=== PATIENT | male | born 1985 | race Caucasian/White ===

== ENCOUNTER 2017-01-19 06:12 | Day surgery (SDC) | payer OTHER ==
[~2017-01-19] VITALS: Ht 175.3 cm; Wt 81.6 kg
[~2017-01-19 06:12] MED LIST: METH60CA2 PO
[2017-01-19] MEDS ORDERED: CLINDAMYCIN 600 MG in APPROPRIATE DILUENT 1 EA IV ONE (06:30)
[2017-01-19] MEDS ORDERED: LR 1,000 ML IV SCH ×3 (06:30→09:45)
[2017-01-19] MEDS ORDERED: LIDOCAINE 2% W/ EPINEPHRINE 1.7 ML DENTAL INJ As Ordered ONE ×2 (07:13→07:51)
[2017-01-19] MEDS ORDERED: fentaNYL 250 MCG/5 ML INJECTION (J3010) As Ordered ONE (07:47)
[2017-01-19] MEDS ORDERED: MIDAZOLAM INJ 2 MG/2 ML VIAL (J2250) As Ordered ONE (07:47)
[2017-01-19] MEDS ORDERED: DESFLURANE 240 ML INHALANT As Ordered ONE (07:47)
[2017-01-19] MEDS ORDERED: dexameTHASONE 4 MG/ML 1ML VIAL (J1100) As Ordered ONE (08:01)
[2017-01-19] MEDS ORDERED: ONDANSETRON 4MG/2ML VIAL (J2405) As Ordered ONE ×2 (08:01→11:46)
[2017-01-19] MEDS ORDERED: METOCLOPRAMIDE INJ 10MG/2ML VIAL (J2765) As Ordered ONE (08:01)
[2017-01-19] MEDS ORDERED: PROPOFOL 200 MG/20 ML VIAL As Ordered ONE (08:01)
[2017-01-19] MEDS ORDERED: LIDOCAINE 2% INJ 100 MG/5 ML SDV (FOR ANES.) As Ordered ONE (08:01)
[2017-01-19] MEDS ORDERED: NEOSTIGMINE 1MG/ML 5 ML SYRINGE (J2710) As Ordered ONE (08:01)
[2017-01-19] MEDS ORDERED: GLYCOPYRROLATE INJ 0.2 MG/ML 2 ML VIAL As Ordered ONE (08:01)
[2017-01-19] MEDS ORDERED: ROCURONIUM BROMIDE 50 MG/5 ML VIAL/SYRINGE As Ordered ONE (08:01)
[2017-01-19] MEDS ORDERED: HYDROmorphone HCL 2 MG/ML 1ML VIAL (J1170) As Ordered ONE (08:25)
[2017-01-19] MEDS ORDERED: PERCOCET 5MG/325MG TAB PO PRN (09:45)
[2017-01-19] MEDS ORDERED: ONDANSETRON 4MG/2ML VIAL (J2405) IV PRN (09:45)
[2017-01-19] MEDS ORDERED: MEPERIDINE INJ 25 MG/ML VIAL (J2175) IV PRN (09:45)
[2017-01-19] MEDS ORDERED: NORCO, ANEXSIA 5/325MG TABLET (HYDROcodone/ACETAMINOPHEN) PO PRN (09:45)
[2017-01-19] MEDS ORDERED: fentaNYL 100 MCG/2 ML INJECTION (J3010) IV PRN (09:45)
[2017-01-19] MEDS ORDERED: CLINDAMYCIN 150 MG CAP PO ONE (09:45)
[2017-01-19] MEDS ORDERED: METOCLOPRAMIDE INJ 10MG/2ML VIAL (J2765) IV PRN (09:45)
[2017-01-19 11:30] VITALS: BP 133/83
--- NOTE | 2017-01-19 17:03 | RO ---
DATE OF PROCEDURE: 01/19/2017 PREOPERATIVE DIAGNOSIS: Multiple carious infected and fractured teeth. POSTOPERATIVE DIAGNOSIS: Multiple carious infected and fractured teeth. SURGICAL PROCEDURE: Extraction of all remaining maxillary teeth and right mandibular teeth #29 and 31. SURGEON: David Rock DDS ANESTHESIA: Nasoendotracheal, general. PROCEDURE: After induction of adequate general anesthesia, the patient was prepped and draped in the usual manner for an oral surgical procedure. The mouth and oropharynx were suctioned free of all secretions and a moist gauze throat pack was inserted. At this time, approximately 6 mL of 2% lidocaine solution containing 1:100,000 epinephrine was infiltrated into the mucofacial and mucolabial fold adjacent to the areas of interest. Teeth #8, 9 and 10 were then extracted with a forceps without complication. Remaining teeth were surgical extractions. Incisions were made through the gingival sulcus at each site with extensions along the alveolar crest and release incisions made as needed. Full-thickness mucoperiosteal flaps were developed. Surgairtome as used to remove bone overlying facial root surfaces. Molar teeth were divided and removed in fragments. After removal of all teeth and root fragments, the sites were debrided. Sharp bony margins were contoured with the Surgairtome and bone file. The sites were thoroughly irrigated and evacuated and then the mucosa recoapted with #4-0 chromic gut sutures. This concluded the procedure. All surgical sites and extraction sites were inspected and adequate hemostasis was verified. The mouth and oropharynx were again suctioned free of all secretions and the moist gauge throat pack removed. Ray-Donya sponges were placed between the upper and lower jaw creating pressure over the extraction sites and left to travel with the patient to the recovery room. The patient was extubated; was in stable condition and transferred to recovery room in satisfactory condition.
== END 2017-01-19 12:10 | disposition home or self-care (01) ==
LOC: M SDC 06:12
PROVIDERS: ATTEND Dentist Oral and Maxillofacial Surgery
DX: K02.9 Dental caries, unspecified (principal); F90.9 Attention-deficit hyperactivity disorder, unspecified type; Z87.891 Personal history of nicotine dependence; Z79.899 Other long term (current) drug therapy
CPT/HCPCS: 88300; D7140; D7210; D9223

== ENCOUNTER 2023-05-22 08:36 | Day surgery (SDC) | payer OTHER ==
[~2023-05-22] VITALS: Ht 175.3 cm; Wt 91.8 kg
[~2023-05-22 08:36] MED LIST changes: +HYDR-4514 PO
[2023-05-22] MEDS ORDERED: LR 1,000 ML IV SCH (08:50)
[2023-05-22] MEDS ORDERED: AMPICILLIN SOD/SULBACTAM SOD 3 GM in D5W MINI-BAG PLUS 100 ML IV ONE (09:35)
[2023-05-22] MEDS ORDERED: AMPICILLIN SOD/SULBACTAM SOD 3 GM in D5W MINI-BAG PLUS 100 ML IV SCH (10:00)
[2023-05-22] MEDS ORDERED: LIDOCAINE 2% W/ EPINEPHRINE 1.7 ML DENTAL INJ As Ordered ONE (10:44)
[2023-05-22] MEDS ORDERED: ACETAMINOPHEN 1000MG 100ML IV BAG As Ordered ONE (11:14)
[2023-05-22] MEDS ORDERED: LIDOCAINE 2% 100MG/5ML SDV (FOR ANES.) As Ordered ONE (11:14)
[2023-05-22] MEDS ORDERED: ONDANSETRON 4MG 2ML VIAL As Ordered ONE (11:14)
[2023-05-22] MEDS ORDERED: ROCURONIUM BROMIDE 50MG/5ML VIAL As Ordered ONE (11:14)
[2023-05-22] MEDS ORDERED: propofoL 200 MG/20 ML VIAL As Ordered ONE (11:14)
[2023-05-22] MEDS ORDERED: LIDOCAINE 2% JELLY 6ML SYRINGE As Ordered ONE (11:14)
[2023-05-22] MEDS ORDERED: fentaNYL 100 MCG/2 ML INJECTION As Ordered ONE (11:14)
[2023-05-22] MEDS ORDERED: SUGAMMADEX SODIUM 500 MG/5 ML VIAL (BRIDION) As Ordered ONE (11:14)
[2023-05-22] MEDS ORDERED: MIDAZOLAM INJ 2MG/2ML VIAL As Ordered ONE (11:14)
[2023-05-22] MEDS ORDERED: fentaNYL 100 MCG/2 ML INJECTION IV PRN (11:40)
[2023-05-22] MEDS ORDERED: ONDANSETRON 4MG 2ML VIAL IV PRN (11:40)
[2023-05-22] MEDS ORDERED: oxyCODONE 5MG TAB PO PRN (11:40)
[2023-05-22] MEDS ORDERED: MORPHINE 2 MG/ML 1ML VIAL IV PRN (11:40)
[2023-05-22 12:45] VITALS: BP 150/90; TEMP 98; O2SAT 98
== END 2023-05-22 12:55 | disposition home or self-care (01) ==
LOC: M SDC 08:36
PROVIDERS: ATTEND Dentist
DX: K02.9 Dental caries, unspecified (principal); M54.9 Dorsalgia, unspecified; F90.9 Attention-deficit hyperactivity disorder, unspecified type; Z87.891 Personal history of nicotine dependence; Z91.018 Allergy to other foods
CPT/HCPCS: 88300; D7140; D7210; D9223; J0131; J1100; J2250; J2405; J3010